=== PATIENT | female | born 1950 | race Caucasian/White ===

== ENCOUNTER → 2019-12-23 13:52 | Outpatient (BNVA) | payer MEDICARE, MEDICAID, SELFPAY | PROVIDERS: Visit Provider Family Medicine | DX: R10.9 Unspecified abdominal pain (principal); K59.00 Constipation, unspecified | CPT/HCPCS: 80053; 80061; 81000; 83690; 85025; 85610 ==

== ENCOUNTER 2020-02-16 10:18 | Outpatient (CLI) | payer MEDICARE, MEDICAID, SELFPAY ==
--- NOTE | 2020-02-16 10:36 | US_ITS ---
WS: [id number] RENAL ULTRASOUND HISTORY: KIDNEY DISEASE STAGE 3 COMPARISON: None available. TECHNIQUE: 2-D and color Doppler imaging of the kidney submitted. Right kidney: 9.8 cm x 4.1 cm x 3.7 cm. Normal echogenicity with no hydronephrosis or mass. Left kidney: 10.1 cm x 4.1 cm x 4.0 cm. Normal echogenicity with no hydronephrosis or mass. There is a cyst in the superior pole measures 1.5 x 1.0 x 1.2 cm. No solid mass. Aorta: Normal. Urinary Bladder: Normal distention. US/US renal BI* [id number] IMPRESSION: 1. No hydronephrosis or significant renal atrophy. 2. Simple cyst upper pole LEFT kidney with a maximum diameter 1.5 cm.
== END 2020-02-16 10:19 | disposition home or self-care (01) ==
LOC: US 10:19
PROVIDERS: Visit Provider Internal Medicine
DX: N18.3 Chronic kidney disease, stage 3 (moderate) (principal); N28.1 Cyst of kidney, acquired
CPT/HCPCS: 76770

== ENCOUNTER → 2022-07-27 13:13 | Outpatient (BNVA) | payer MEDICARE, MEDICAID, SELFPAY | PROVIDERS: PCP Physician Assistant; Visit Provider Emergency Medicine | DX: J02.9 Acute pharyngitis, unspecified (principal); R68.89 Other general symptoms and signs; J98.8 Other specified respiratory disorders; B97.89 Other viral agents as the cause of diseases classified elsewhere | CPT/HCPCS: 87071; 87400; 87426; 87880 ==

== ENCOUNTER → 2022-08-04 15:51 | Outpatient (BNVA) | payer MEDICARE, MEDICAID, SELFPAY | PROVIDERS: PCP Physician Assistant; Visit Provider Nurse Practitioner Family | DX: R10.9 Unspecified abdominal pain (principal) | CPT/HCPCS: 81000; 87086 ==

== ENCOUNTER → 2022-09-06 16:05 | Outpatient (BNVA) | payer MEDICARE, MEDICAID, SELFPAY | PROVIDERS: PCP Physician Assistant; Visit Provider Psychiatry & Neurology Psychiatry | DX: F41.1 Generalized anxiety disorder (principal); F32.9 Major depressive disorder, single episode, unspecified; Z79.899 Other long term (current) drug therapy | CPT/HCPCS: 80053; 80061; 83036; 84443; 85025 ==

== ENCOUNTER 2023-09-06 15:23 | Emergency (ER) | payer MEDICARE, MEDICAID, SELFPAY ==
[2023-09-06 15:28] VITALS: BMI 44.8
[2023-09-06 15:31] VITALS: BP 112/73; PULSE 65; RESP 16; TEMP 36.6; O2SAT 96
--- NOTE | 2023-09-06 16:15 | ED_ITS ---
HPI - Eye Problem General: Chief complaint: Eye Problems Stated complaint: eye pain Time Seen by Provider: 09/06/23 15:38 History of Present Illness: 72-year-old female comes in today for co mplaints of eye pain and lower leg weeping. Patient appears nontoxic. Patient reports that her right eye is more uncomfortable than her left. Patient does have some noticeable redness and swelling to lower eyelids bilaterally. Patient takes medications routinely for depression including quetiapine and fluoxetine. Patient also takes medications routinely for pain including hydrocodone. Patient also takes famotidine routinely. No routine diuretic is noted. Review of Systems General: Reports: 10 or more systems reviewed and unremarkable except in HPI and below Eyes: Reports: eye redness Skin/Breast: Reports: erythema PFSH ED PFSH: Medical History Bipolar depression COPD (chronic obstructive pulmonary disease) Depression Generalized anxiety disorder Gross hematuria Insomnia Major depressive disorder Psychiatric care Recurrent UTI Right flank pain Substance dependence Surgical History H/O hernia repair History of knee replacement Family History Other Cancer Lung disease Social History Smoking and tobacco/nicotine status: current every day tobacco/nicotine user cigarettes Packs smoked per day: 0.5 Second hand smoke exposure: Yes Alcohol intake: former Substance/Drug Use: never Current gender identity: Female Physical Exam Const: COMMON NORMALS: alert HENMT: COMMON NORMALS: normocephalic HEAD & SCALP: normocephalic Eye: OTHER: Bilateral eyelids have some erythema with the lower lids being worse than the upper. Resp: COMMON NORMALS: normal respiratory effort Cardio: COMMON NORMALS: regular rate RATE: regular rate Extremity: NARRATIVE EXTREMITY EXAM: Bilateral lower legs have 2+ edema with some anterior redness and weeping. Neuro: SENSORIUM/ORIENTATION: Yes alert Skin: NARRATIVE SKIN EXAM: Redness and excoriation is noted to bilateral lower extremities. Course Vital Signs: Vital signs: Vital Signs Temperature 97.8 F 09/06/23 15:31 Pulse Rate 65 09/06/23 15:31 Respiratory Rate 16 09/06/23 15:31 Blood Pressure 112/73 09/06/23 15:31 Pulse Oximetry 96 09/06/23 15:31 MDM - Eye Problem Medical Decision Making Patient comes in today for complaints of bilateral eye pain and lower leg redness and swelling. On exam bilateral lower legs are erythematous with some +2 pitting edema. Patient does have some redness with excoriation and weeping of the skin. This is found in both lower extremities. Respirations are even lungs are clear to auscultation. Vital signs are normal. Bilateral eyes have some erythema to the lower lids bilaterally. Differential diagnosis includes but not limited to cellulitis, dependent edema, CHF, blepharitis, conjunctivitis. Patient appears nontoxic and is stable. Patient will be started on antibiotics for the redness to her lower extremities with encouragement to elevate the legs is much as possible. Patient was also put on spironolactone 25 mg daily to help with fluid retention. Patient reports understanding of care plan need for follow-up with primary care. No radiology studies performed this visit Discharge Plan Discharge Patient Disposition: Home Clinical Impression: Dependent edema, Cellulitis and abscess of lower extremity Blepharitis of both eyes Qualifiers: Blepharitis type: unspecified type Eyelid: lower Qualified Code(s): H01.002 - Unspecified blepharitis right lower eyelid Condition: Stable Prescriptions: New spironolactone 25 mg tablet 25 mg PO DAILY Qty: 14 0RF cephalexin 500 mg capsule 500 mg PO Q8H 7 Days Qty: 21 0RF No Action furosemide 40 mg tablet 80 mg PO DAILY 30 Days Qty: 40 1RF albuterol sulfate 2.5 mg /3 mL (0.083 %) solution for nebulization 2.5 mg INHALATION Q4H PRN albuterol sulfate [ProAir HFA] 90 mcg/actuation HFA aerosol inhaler 2 puff INHALATION Q6H PRN hydrocodone-acetaminophen 5-325 mg tablet 1 tab PO Q8H PRN cephalexin 500 mg capsule 500 mg PO Q8H buspirone 15 mg tablet 15 mg PO BID Qty: 60 3RF quetiapine [Seroquel] 200 mg tablet 200 mg PO DAILY 30 Days Qty: 30 3RF fluoxetine 20 mg capsule 60 mg PO DAILY 30 Days Qty: 90 3RF Discharge Orders: Discharge ED (Routine); Ordered 09/06/23 Ordered By: Zachery Muñoz Referrals: Yarely Roach PA-C [Primary Care Provider] - Discharge Diet: Usual diet Discharge Activity: Increase activity as tolerated Patient Instructions: Cellulitis (ED), Blepharitis (ED) Activity Restrictions/Additional Instructions: Home and rest. Elevate legs is much as possible. When sitting you should always elevate your legs. Take diuretic spironolactone 25 mg in the morning each day to help with fluid retention. Take antibiotics cephalexin 500 mg 3 times a day for the next 7 days. Use eyedrops for your eye infection 1 to 2 drops 4 times a day while awake for the next 7 days. Follow-up with primary care in 1 week for recheck. Return to ED for new concerns or worsening symptoms such as fever greater than 100.4, chest pain, or shortness of breath. Coding Level of Care Code ED Information Management Officer for L[facility] White
[2023-09-06] MEDS: cephALEXin 500 mg Capsule PO (16:29)
[2023-09-06] MEDS: neomycin-poly-dex Op 5 mL Btl 2 DROP EYE-BOTH (16:30)
== END 2023-09-06 16:38 | disposition home or self-care (01) ==
PROVIDERS: Emergency Provider Nurse Practitioner Family; PCP Physician Assistant
DX: H01.005 Unspecified blepharitis left lower eyelid (principal); H01.002 Unspecified blepharitis right lower eyelid; R60.0 Localized edema; L03.116 Cellulitis of left lower limb; L03.115 Cellulitis of right lower limb; J44.9 Chronic obstructive pulmonary disease, unspecified; F17.210 Nicotine dependence, cigarettes, uncomplicated
CPT/HCPCS: 99283

== ENCOUNTER 2024-11-29 14:04 | Emergency (ER) | payer OTHER, SELFPAY ==
[2024-11-29 14:05] VITALS: BP 108/77; PULSE 88; RESP 17; TEMP 37; O2SAT 90; BMI 20.1
--- NOTE | 2024-11-29 14:30 | XRR_ITS ---
PROCEDURE INFORMATION: Exam: XR Chest Exam date and time: 11/29/2024 3:25 PM Age: 74 years old Clinical indication: Other: Syncope TECHNIQUE: Imaging protocol: Radiologic exam of the chest. Views: 1 view. COMPARISON: CT abdomen pelvis wo con [id number] 03/06/2020 3:10 PM FINDINGS: Lungs: Mild basilar linear atelectasis. No consolidation. Pleural spaces: Unremarkable. No pleural effusion. No pneumothorax. Heart/Mediastinum: Unremarkable. No cardiomegaly. Vasculature: Aortic arch atherosclerotic calcification. Bones/joints: Degenerative change along the spine. XR/XR chest 1V portable [id number] IMPRESSION: No acute findings.
--- NOTE | 2024-11-29 14:33 | ECG_ITS ---
[email or web address] Test Date: 2024-11-29 Pat Name: Chantelle Farfan Department: Room: Gender: Female Web Site Developer: : 1950 Requested By: Link Franco Order Number: [id number] Guerrero MD: Heena Quinones M.D. Measurements Intervals [place] Rate: 80 P: 70 OH: 121 QRS: 49 QRSD: 90 T: 75 QT: 413 QTc: 479 Interpretive Statements SINUS RHYTHM INDETERMINATE AXIS No previous ECG available for comparison Electronically Signed On 11-30-2024 12:34:21 CDT by Heena Quinones M.D. [email or web address]
[2024-11-29 14:45] LABS: ABG PCO2 47.8 mmHg (35-45); ABG PH Result 7.49 (7.35-7.45); Arterial Blood Gas Hematocrit 44.5 % (37-47); Base Excess ABG 11.2 mmol/L (-2.0-2.0); Blood Gas Allen Test Pos; Blood Gas Operator Identificat WALCI; Blood Gas Sample Site Brachial, right; Blood Gas Sample Type Arterial; HCO3 ABG 36.3 mmol/L (22-26); Oxygen Device NC; PO2 ABG 56.5 mmHg (80.0-100.0)
[2024-11-29 15:22] LABS: Basophils # 0.1 10^3/uL (0.0-0.1); Basophils % 0.4 %; Eosinophils # 0.1 10^3/uL (0.0-0.8); Eosinophils % 0.3 %; Hematocrit 45.9 % (36-47); Lymphocytes # 2.1 10^3/uL (0.8-4.8); Lymphocytes % 10.3 %; Mean Corpuscular HGB Conc 30.9 g/dL (30-55); Mean Corpuscular Hemoglobin 29.1 pg (27-33); Mean Corpuscular Volume 94.1 fl (85-98); Mean Platelet Volume 9.8 fL (7.4-10.4); Monocytes # 1.8 10^3/uL (0.2-0.9); Monocytes % 8.9 %; Neutrophils # 16.34 10^3/uL (1.8-7.7); Neutrophils % 79.4 %; Nucleated Red Blood Cells % 0 %; Platelet Count 253 10^3/cmm (157-399); Red Blood Count 4.88 10^6/uL (3.85-5.65); Red Cell Distribution Width 15.2 % (12.1-15.1); White Blood Count 20.58 10^3/uL (3.29-11.43)
[2024-11-29 15:36] LABS: D Dimer 2.89 ug/mLFEU (0-0.59)
[2024-11-29 15:42] LABS: Lactic Sepsis W/Reflex 3.2 mmol/L (0.5-2.2); Reflex Lactate Order REFLEX LACTIC ORDERD
[2024-11-29 15:49] LABS: NT Pro B Type Natriuretic Pept 150 pg/mL (0-125); Procalcitonin 0.08 ng/mL (0-0.5)
[2024-11-29 16:00] LABS: Alanine Aminotransferase 11 U/L (0-33); Albumin Level 3.2 g/dL (3.5-5.2); Alkaline Phosphatase 137 U/L (35-105); Anion Gap 19.5 (5-19); Aspartate Amino Transferase 14 U/L (0-32); Blood Urea Nitrogen 22 mg/dL (8-23); Calcium 9.1 mg/dL (8.5-10.5); Carbon Dioxide 26 mmol/L (22-29); Chloride 93 mmol/L (98-107); Creatinine Clr Calc Pharmacy 49.4536; Globulin 3.6 g/dL (1.3-4.6); Glucose 118 mg/dL (65-115); Osmolality Calculated 284 mOsm/kg (285-295); Potassium 3.5 mmol/L (3.5-5.1); Sodium 135 mmol/L (136-145); Total Bilirubin 0.2 mg/dL (0.15-1.2); Total Protein 6.8 g/dL (6.6-8.7)
--- NOTE | 2024-11-29 16:06 | CTR_ITS ---
PROCEDURE INFORMATION: Exam: CTA Chest With Contrast Exam date and time: 11/29/2024 4:23 PM Age: 74 years old Clinical indication: Shortness of breath; Additional info: SOB, elevated d-dimer, hypoxia, syncope TECHNIQUE: Imaging protocol: Computed tomographic angiography of the chest with contrast. Exam focused on the arteries. 3D rendering (Not supervised by radiologist): MIP and/or 3D reconstructed images were created by the technologist. Radiation optimization: All CT scans at this facility use at least one of these dose optimization techniques: automated exposure control; mA and/or kV adjustment per patient size (includes targeted exams where dose is matched to clinical indication); or iterative reconstruction. Contrast material: OMNI 350; Contrast volume: 63 ml; Contrast route: INTRAVENOUS (IV); COMPARISON: 1. CR (CHEST, ) 11/29/2024 3:[address] abdomen pelvis wo con [id number] 03/06/2020 3:10 PM RADIATION DOSE METRICS: Total DLP (mGy-cm): 194.45 FINDINGS: Pulmonary arteries: Normal pulmonary arterial caliber with occlusive filling defect extending from the right lower lobe lobar artery throughout the basal segmental and subsegmental arteries. Aorta: Moderate systemic atherosclerosis without aortic aneurysm. Contrast bolus not timed to evaluate systemic arterial bed. Trachea: Partially occlusive secretions within the rightward lower trachea and main bronchus extending into the right middle and lower lobe airways with distal segmental/subsegmental patency. Lungs: Cuznt-[id number]-[id number]-left lung bandlike subsegmental atelectasis with area of posterior right lower lobe ground-glass opacification. Pleural spaces: Unremarkable. No pneumothorax. No pleural effusion. Heart: Unremarkable. No cardiomegaly. No pericardial effusion. Heart RV/LV ratio: 0.85 Coronary arteries: Mild coronary artery calcification. Lymph nodes: Unremarkable. No enlarged lymph nodes. Liver: Hepatic calcified granulomata. Gallbladder and biliary ducts: Prior cholecystectomy. Spleen: Splenic calcified granulomata. Kidneys: Benign-appearing fluid density left renal cyst redemonstrated. Tiny right renal calcification without hydronephrosis. Bones/joints: No acute fracture. Mildly displaced transverse mid sternal fracture with healing sclerosis and surrounding callus formation. Degenerative change along the spine. Soft tissues: Unremarkable. CT/CT angio chest PE protcl [id number] IMPRESSION: 1. Occlusive right lower lobe pulmonary embolus extending from the lobar level throughout the basal segmental and subsegmental branches. No findings to suggest right heart strain. 2. Prominent partially occlusive secretions within the rightward lower trachea and main bronchus extending into the right middle and lower lobe airways with distal segmental/subsegmental patency. 3. Posterior right lower lobe ground-glass opacification may represent atelectasis, possibly ischemic injury given upstream occlusive PE, possibly aspiration given prominent upstream airway secretions. 4. Subacute healing mildly displaced mid sternal fracture. 5. Additional chronic and incidental findings as above. THIS REPORT CONTAINS FINDINGS THAT MAY BE CRITICAL TO PATIENT CARE. The findings were verbally communicated via telephone conference with SAUL BERG at 5:12 PM CDT on 11/29/2024. The findings were acknowledged and understood.
[2024-11-29] MEDS: iohexol 350 mg/mL 500 mL Btl (per mL) IV (16:24)
--- NOTE | 2024-11-29 17:32 | W.ED.SYNCOPE ---
HPI - Syncope General: Chief Complaint: Syncope Stated Complaint: syncope Time Seen by Provider: 11/29/24 14:17 Source: patient and EMS Mode of arrival: EMS Limitations: altered mental status (Dementia, hypoxia) History of Present Illness: Patient when she felt short of breath at lunch and the like she could not breathe. There is the whisper of that she possibly had a syncopal episode. She is currently alert and oriented x 2, nonlabored but is requiring more oxygen than normal. Patient just complains of feeling short of breath. Related Data Home Medications ?Medication ?Instructions ?Recorded ?Confirmed albuterol sulfate 2.5 mg/3 mL 2.5 mg inhalation Q4H PRN 12/09/19 02/27/23 (0.083 %) solution for nebulization albuterol sulfate 90 mcg/actuation 2 puff inhalation Q6H PRN 12/09/19 02/27/23 aerosol inhaler (ProAir HFA) cephalexin 500 mg capsule 500 mg PO Q8H 02/27/23 02/27/23 hydrocodone 5 mg-acetaminophen 325 1 tab PO Q8H PRN 02/27/23 02/27/23 mg tablet Previous Rx's ?Medication ?Instructions ?Recorded furosemide 40 mg tablet 80 mg (2 x 40 mg) PO DAILY 30 days 12/30/19 #40 tabs buspirone 15 mg tablet 15 mg PO BID #60 tabs 09/06/22 quetiapine 200 mg tablet (Seroquel) 200 mg PO DAILY 30 days #30 tabs 03/06/23 fluoxetine 20 mg capsule 60 mg (3 x 20 mg) PO DAILY 30 days 06/27/23 #90 caps spironolactone 25 mg tablet 25 mg PO DAILY #14 tabs 09/06/23 Allergies Allergy/AdvReac Type Severity Reaction Status Date / Time No Known Allergies Allergy Verified 02/27/23 14:48 Review of Systems General: Reports: ROS unobtainable due to mental status PFSH ED PFSH: Medical History (Updated 11/29/24 @ 17:35 by Link Franco MD) Substance dependence Generalized anxiety disorder Major depressive disorder Recurrent UTI Right flank pain Gross hematuria Bipolar depression COPD (chronic obstructive pulmonary disease) Depression Insomnia Surgical History History of knee replacement H/O hernia repair Family History Other Cancer Lung disease Social History Smoking and tobacco/nicotine status: current every day tobacco/nicotine user cigarettes Packs smoked per day: 0.5 Second hand smoke exposure: Yes Alcohol intake: former Substance/Drug Use: never Current gender identity: Female Physical Exam Const: COMMON NORMALS: average body habitus, patient oriented x3, healthy appearing, alert and well nourished GENERAL APPEARANCE: well kempt, well developed and other (Mild distress) HENMT: COMMON NORMALS: normocephalic, atraumatic, external ears normal and moist oral mucous membranes HEAD & SCALP: normocephalic and atraumatic EXTERNAL EAR: Yes external ears normal Eye: COMMON NORMALS: Equal, round and reactive pupils present, EOMs intact bilaterally and conjunctivae normal CONJUNCTIVA: Yes conjunctivae normal PUPIL: Yes Equal, round and reactive pupils present Neck/C-Spine: COMMON NORMALS: full ROM, no lymphadenopathy and supple Chest: CHEST: Yes Symmetrical chest wall rise and No Surgical scars present (Chest) Resp: OTHER: Labored breaths minimally tachypneic at 21, requiring 6 L nasal cannula, with accessory muscle use. Has mild rhonchi in the right lower lobe Cardio: COMMON NORMALS: regular rate, regular rhythm, S1 normal heart sound present, S2 normal heart sound present, No gallops present (Cardio), No clicks present (Cardio), No murmurs present (Cardio) and No rub (Cardio) RATE: regular rate RHYTHM: regular rhythm HEART SOUNDS: S1 normal heart sound present, S2 normal heart sound present and no murmurs PERIPHERAL PULSES: other (Radial pulses 2+ and symmetric) GI: COMMON NORMALS: Soft to palpation, non-tender and no masses INSPECTION: No abdominal distension PALPATION: Yes Soft to palpation, No Guarding due to palpation present (GI) and No Rebound tenderness present : COMMON NORMALS: Yes no CVA tenderness BLADDER/KIDNEY EXAM: Yes no CVA tenderness Back/Pelvis: COMMON NORMALS: no CVA tenderness Extremity: COMMON NORMALS: normal to inspection, full ROM, capillary refill normal and no clubbing, cyanosis or edema Neuro: COMMON NORMALS: patient oriented x3 SENSORIUM/ORIENTATION: Yes alert Psych: APPEARANCE: Yes well kempt Skin: COMMON NORMALS: no rashes or lesions noted, no wounds, turgor normal and no jaundice GENERAL SKIN EXAM: no rashes or lesions noted and turgor normal Course Consultations: Consultation #1: Spoke with Dr. Morillo of the hospitalist at [facility]. He accepts patient to ICU. He has notified IR. We have discussed that currently no indication for a stat thrombectomy tonight. But agree the patient's case could progress in that direction. Time: 17:33 Consultation #2: Spoke with IR who agrees my assessment. Is okay with evaluating patient. Time: 18:00 Vital Signs: Vital signs: Vital Signs Temperature 98.6 F 11/29/24 14:05 Pulse Rate 88 11/29/24 14:05 Respiratory Rate 17 11/29/24 14:05 Blood Pressure 108/77 11/29/24 14:05 Pulse Oximetry 90 11/29/24 14:05 Oxygen Delivery Me thod Nasal Cannula 11/29/24 14:05 Oxygen Flow Rate 6 11/29/24 14:05 MDM - Syncope Medical Decision Making 74-year-old female with fully occlusive right lower lobe pulmonary embolism. No obvious right heart strain. Has some right lower lobe ischemia changes and some debris in the airway. Having increased hypoxia compared to baseline where she is on 0 to 2 L. History is somewhat unreliable as patient clearly has some sundowners going on. Family is also nonresponsive and probably has been that way for some time at the correction as well. Patient will be transferred as her ICU is full as we also done not have anyone that performes thrombectomy if that became in need of patient Medical Records I reviewed the patient's medical records. Lab Data I reviewed the patient's lab results. 11/29/24 15:15 11/29/24 15:15 Radiology Impressions Chest X-Ray 11/29/24 14:30 IMPRESSION: No acute findings. Chest CTA 11/29/24 16:06 IMPRESSION: 1. Occlusive right lower lobe pulmonary embolus extending from the lobar level throughout the basal segmental and subsegmental branches. No findings to suggest right heart strain. 2. Prominent partially occlusive secretions within the rightward lower trachea and main bronchus extending into the right middle and lower lobe airways with distal segmental/subsegmental patency. 3. Posterior right lower lobe ground-glass opacification may represent atelectasis, possibly ischemic injury given upstream occlusive PE, possibly aspiration given prominent upstream airway secretions. 4. Subacute healing mildly displaced mid sternal fracture. 5. Additional chronic and incidental findings as above. THIS REPORT CONTAINS FINDINGS THAT MAY BE CRITICAL TO PATIENT CARE. The findings were verbally communicated via telephone conference with LINK BERG at 5:12 PM CDT on 11/29/2024. The findings were acknowledged and understood. Laboratory Results WBC 20.58 10^3/uL (3.29-11.43) H 11/29/24 15:15 RBC 4.88 10^6/uL (3.85-5.65) 11/29/24 15:15 Hgb 14.20 g/dL (11.27-16.99) 11/29/24 15:15 Hct 45.9 % (36-47) 11/29/24 15:15 MCV 94.1 fl (85-98) 11/29/24 15:15 MCH 29.1 pg (27-33) 11/29/24 15:15 MCHC 30.9 g/dL (30-55) 11/29/24 15:15 RDW 15.2 % (12.1-15.1) H 11/29/24 15:15 Plt Count 253 10^3/cmm (157-399) 11/29/24 15:15 MPV 9.8 fL (7.4-10.4) 11/29/24 15:15 Neut % (Auto) 79.4 % 11/29/24 15:15 Lymph % (Auto) 10.3 % 11/29/24 15:15 Throckmorton % (Auto) 8.9 % 11/29/24 15:15 Eos % (Auto) 0.3 % 11/29/24 15:15 Baso % (Auto) 0.4 % 11/29/24 15:15 Neut # (Auto) 16.34 10^3/uL (1.8-7.7) H 11/29/24 15:15 Lymph # (Auto) 2.1 10^3/uL (0.8-4.8) 11/29/24 15:15 Throckmorton # (Auto) 1.8 10^3/uL (0.2-0.9) H 11/29/24 15:15 Eos # (Auto) 0.1 10^3/uL (0.0-0.8) 11/29/24 15:15 Baso # (Auto) 0.1 10^3/uL (0.0-0.1) 11/29/24 15:15 Nucleated RBC % (auto) 0 % 11/29/24 15:15 Nucleated RBCs # 0.0 /100WBC 11/29/24 15:15 D-Dimer 2.89 ug/mLFEU (0-0.59) H 11/29/24 15:15 Specimen Type Arterial 11/29/24 14:34 Sample Site Brachial, right 11/29/24 14:34 ABG pH 7.49 (7.35-7.45) H 11/29/24 14:34 ABG pCO2 47.8 mmHg (35-45) H 11/29/24 14:34 ABG pO2 56.5 mmHg (80.0-100.0) L 11/29/24 14:34 ABG HCO3 36.3 mmol/L (22-26) H 11/29/24 14:34 ABG Base Excess 11.2 mmol/L (-2.0-2.0) H 11/29/24 14:34 Piyush Test Pos 11/29/24 14:34 Hematocrit 44.5 % (37-47) 11/29/24 14:34 O2 Delivery Device Nc 11/29/24 14:34 O2 Liters/Min 5.0 % 11/29/24 14:34 Children'S Nursery Assistant ID Walci 11/29/24 14:34 Sodium 135 mmol/L (136-145) L 11/29/24 15:15 Potassium 3.5 mmol/L (3.5-5.1) 11/29/24 15:15 Chloride 93 mmol/L (98-107) L 11/29/24 15:15 Carbon Dioxide 26 mmol/L (22-29) 11/29/24 15:15 Anion Gap 19.5 (5-19) H 11/29/24 15:15 BUN 22 mg/dL (8-23) 11/29/24 15:15 Creatinine 0.7 mg/dL (0.5-0.9) 11/29/24 15:15 GFR Calculation Not Reportable 11/29/24 15:15 Glucose 118 mg/dL (65-115) H 11/29/24 15:15 Calculated Osmolality 284 mOsm/kg (285-295) L 11/29/24 15:15 Lactic Acid 3.2 mmol/L (0.5-2.2) H 11/29/24 15:15 Calcium 9.1 mg/dL (8.5-10.5) 11/29/24 15:15 Total Bilirubin 0.2 mg/dL (0.15-1.2) 11/29/24 15:15 AST 14 U/L (0-32) 11/29/24 15:15 ALT 11 U/L (0-33) 11/29/24 15:15 Alkaline Phosphatase 137 U/L (35-105) H 11/29/24 15:15 NT-Pro-B Natriuret Pep 150 pg/mL (0-125) H 11/29/24 15:15 Total Protein 6.8 g/dL (6.6-8.7) 11/29/24 15:15 Albumin 3.2 g/dL (3.5-5.2) L 11/29/24 15:15 Globulin 3.6 g/dL (1.3-4.6) 11/29/24 15:15 Procalcitonin 0.08 ng/mL (0-0.5) 11/29/24 15:15 All radiology interpretation(s) finalized by discharge Critical Care Time Critical Care Time: Critical Care Time: Yes Total Critical Care Time: 51 Attestation: This case had a high probability of a clinically significant, sudden, or life threatening deterioration of this patient's condition which required my full and direct attention, intervention and personal management. Discharge Plan Discharge Patient Disposition: Xfer Short-Term Hosp Clinical Impression: Lung ischemia Pulmonary embolism Qualifiers: Chronicity: acute Acute cor pulmonale presence: unspecified Condition: Stable Referrals: Yarely Roach PA-C [Primary Care Provider, Unknown] Print Language: Nauruan Coding Level of Care Code ED Circulation Director for Lulu White
--- NOTE | 2024-11-29 17:40 | ECG_ITS ---
[facility]: 2024-[facility]29 Pat Name: Chantelle Farfan Department: Room: Gender: Female Quahogger: : 1950 Requested By: Link Franco Order Number: [id number] Guerrero MD: Heena Quinones M.D. Measurements Intervals [place] Rate: 82 P: 76 MT: 130 QRS: 87 QRSD: 85 T: 87 QT: 425 QTc: 499 Interpretive Statements SINUS RHYTHM QT prolonged Compared to ECG 11/29/2024 14:49:02 Indeterminate axis no longer present Electronically Signed On 11-30-2024 12:32:36 CDT by Heena Quinones M.D. [email or web address]
[2024-11-29 18:05] VITALS: BP 111/77; PULSE 96; O2SAT 88
[2024-11-29 18:07] LABS: NT Pro B Type Natriuretic Pept 148 pg/mL (0-125); Troponin(5th) Baseline 32 ng/L (0-10)
[2024-11-29 18:19] LABS: Lactic Acid level (Lactate) 2.1 mmol/L (0.5-2.2)
[2024-11-29 18:44] LABS: Bilirubin Urine Negative (Negative); Blood Urine Negative (Negative); Glucose Urine UA Negative (Normal); Ketones Urine Negative (Negative); Leukocyte Esterase Urine Negative (Negative); Nitrate Urine Negative (Negative); Protein Urine Negative (Negative); Specific Gravity, Urine 1.011 (1.005-1.030); Urine Appearance Clear (CLEAR); Urine Color Yellow (Yellow)
[2024-11-29 18:47] LABS: Add Urine Microscopic? YES; Bacteria Urine None Seen /hpf; Hyaline Casts Urine 2.05 /lpf; RBC Urine 0-2 /hpf (0-2); Squamous Epithelial Cell Urine 0-5 /hpf (0-5); WBC Urine 0-5 /hpf (0-5)
[2024-11-29] MEDS: heparin 5,000 unit/mL INJ 1 mL IVP (19:01)
[2024-11-29] MEDS: heparin drip 25,000 UNIT/500 ML PREMIX 14 UNIT IV (19:03)
[2024-11-29 19:07] LABS: UA Slide Review UA Slide Review Perf
[2024-11-29 20:39] VITALS: BP 120/68; PULSE 77; O2SAT 99
== END 2024-11-29 21:35 | disposition short-term general hospital (02) ==
PROVIDERS: Emergency Provider Emergency Medicine; PCP Physician Assistant
DX: I26.99 Other pulmonary embolism without acute cor pulmonale (principal); F17.210 Nicotine dependence, cigarettes, uncomplicated; J44.9 Chronic obstructive pulmonary disease, unspecified
CPT/HCPCS: 36415; 36600; 71045; 71275; 80053; 81001; 82803; 83605; 83880; 84145; 84484; 85025; 85378; 85730; 93005; 96374; 99285; J1644